=== PATIENT | female | born 1950 | race Two or more races ===

== ENCOUNTER → 2017-02-08 | Outpatient (CLI) | payer MEDICARE ==
[~2017-02-08] MED LIST: ALDACTONE25 MG PO; ASPIRIN LO-DOSE81 MG PO; BRILINTA90 MG PO; COLACE100 MG PO; COREG25 MG PO; FISH OIL1000 MG PO; GLUCOPHAGE500 MG PO; LIPITOR80 MG PO; MAG DELAY64 MG PO; NORVASC5 MG PO; OXYCONTIN EXTEN20 MG PO; PRINIVIL (ZESTR20 MG PO; PRINIVIL (ZESTRI5 MG PO; TYLENOL325 MG PO; VITAMIN E400 UNI2 PO
== END | disposition disaster alternative care site (69) ==
LOC: GRAD 02-05 14:30
DX: R10.31 Right lower quadrant pain (principal); K57.30 Diverticulosis of large intestine without perforation or abscess without bleeding; M47.816 Spondylosis without myelopathy or radiculopathy, lumbar region; Z98.890 Other specified postprocedural states; Z90.710 Acquired absence of both cervix and uterus
CPT/HCPCS: Q9967